=== PATIENT | female | born 1950 | race Hispanic/Latino ===

== ENCOUNTER 2018-01-20 06:05 | Day surgery (SDC) | payer MEDICARE ==
[2016-12-19 17:00] VITALS: BMI 18.3
[2018-01-20] MEDS ORDERED: Tropicamide 0.5% Opht Sol OD SCH (07:00)
[2018-01-20] MEDS ORDERED: Phenylephrine 2.5% Opht Soln OD SCH (07:00)
[2018-01-20] MEDS ORDERED: Povidone Iodine Ophthalmic 5% Soln ONE (07:19)
[2018-01-20] MEDS ORDERED: Tetracaine 0.5% Ophth (OR ONLY) ONE (07:19)
[2018-01-20] MEDS ORDERED: Carbachol 0.01% IO ONE (07:19)
[2018-01-20] MEDS ORDERED: Hyaluronidase Human, Recombi 150 U/ML VIAL ONE (07:20)
[2018-01-20] MEDS ORDERED: Chondroitin/Hyaluronate Opth Syringe KIT (0.55 ml-0.5 ml) IO ONE (07:20)
[2018-01-20] MEDS ORDERED: Lidocaine 2% MPF (5 ml) Inj ONE (07:22)
[2018-01-20] MEDS ORDERED: Lactated Ringer's 1,000 ML IV ONE (07:30)
[2018-01-20] MEDS ORDERED: Lactated Ringer's 500 ML IV ONE ×2 (08:33)
[2018-01-20] MEDS ORDERED: Propofol 10 mg/ml Inj (20 ML) ONE (08:50)
[2018-01-20] MEDS ORDERED: Chondroitin/Hyaluronate 40 mg/ml-30 mg/ml Ophth Syringe (0.5 ml) IO ONE (09:03)
[2018-01-20] MEDS: Tobramycin/Dexamethasone OPHT OINT ONE ×2 (09:10→09:17)
[2018-01-20 11:15] VITALS: BP 134/72; PULSE 79; RESP 18; TEMP 97.7; O2SAT 97
--- NOTE | 2018-01-20 19:48 | OP ---
PROCEDURE DATE: 01/20/2018 PREOPERATIVE DIAGNOSIS: Complex hypermature cataract, right eye. POSTOPERATIVE DIAGNOSIS: Complex hypermature cataract, right eye. PROCEDURE: Complex cataract surgery due to hypermaturity of right eye with lens implant. SURGEON: Emiliano Dunlap MD TYPE OF ANESTHESIA: Retrobulbar block. ESTIMATED BLOOD LOSS: Zero. COMPLICATIONS: None. DESCRIPTION OF PROCEDURE: The patient was brought to the operating room and properly identified. Anesthesia staff administered intravenous sedation and retrobulbar block was given to the surgical eye. The patient was then prepped and draped in the usual sterile fashion. Attention was turned to the surgical eye. A lid speculum was placed into interpalpebral fissure. Sitting temporally, two paracentesis incisions were made. The anterior chamber was filled with viscoelastic and a triplanar clear corneal incision was made. Using a cystitome, anterior capsular leaflet was created. Utrata forceps were used to create a continuous curvilinear capsulorrhexis. Balanced salt solution on a cannula was used to hydrodissect and hydrodelineate the lens. The lens was then phacoemulsified with no complications. Automated irrigation and aspiration was used to remove the cortex. Viscoelastic was used to deepen the anterior chamber. The lens was placed in the capsular bag. Automated irrigation and aspiration was used to remove the viscoelastic. The anterior chamber was filled with Miochol. The wounds were hydrated with balanced salt solution. There was noted to be no leak at the end of the case and the lens was well positioned. The lid speculum was removed. The eye was given antibiotics and steroids and covered with a patch and shield. The patient was returned to the recovery room in stable condition. ADDENDUM: Due to the hypermaturity and complexity of cataract, VisionBlue was used to highlight the anterior capsule. Continuous curvilinear capsulorhexis was then created with no complications. The rest of the procedure proceeded with no issues. Emiliano Dunlap MD
== END 2018-01-20 10:54 | disposition home or self-care (01) ==
LOC: C.SDS 06:05
PROVIDERS: ATTEND Ophthalmology
DX: H25.20 Age-related cataract, morgagnian type, unspecified eye (principal); J44.9 Chronic obstructive pulmonary disease, unspecified
CPT/HCPCS: 66982; J2704; J3470; J7120; V2632